=== PATIENT | female | born 1955 | race Two or more races ===

== ENCOUNTER 2018-10-08 08:27 | Outpatient (CLI) | payer OTHER | END 2018-10-08 10:31 | disposition home or self-care (01) | LOC: LAB 08:27 | DX: D50.0 Iron deficiency anemia secondary to blood loss (chronic) (principal); E11.69 Type 2 diabetes mellitus with other specified complication; E78.00 Pure hypercholesterolemia, unspecified; E03.8 Other specified hypothyroidism; N39.0 Urinary tract infection, site not specified; R10.9 Unspecified abdominal pain; Z12.11 Encounter for screening for malignant neoplasm of colon; K62.5 Hemorrhage of anus and rectum; E55.9 Vitamin D deficiency, unspecified; E53.8 Deficiency of other specified B group vitamins ==

== ENCOUNTER 2018-10-08 11:04 | Outpatient (CLI) | payer OTHER | END 2018-10-08 11:22 | disposition home or self-care (01) | LOC: MAMO-SONO 11:04 | DX: Z12.31 Encounter for screening mammogram for malignant neoplasm of breast (principal); Z87.898 Personal history of other specified conditions; N60.01 Solitary cyst of right breast; N60.02 Solitary cyst of left breast; J44.1 Chronic obstructive pulmonary disease with (acute) exacerbation ==

== ENCOUNTER 2018-10-08 13:31 | Outpatient (CLI) | payer OTHER | END 2018-10-08 14:00 | disposition home or self-care (01) | LOC: NUCLEAR 13:31 | DX: M81.0 Age-related osteoporosis without current pathological fracture (principal) ==

== ENCOUNTER 2018-10-09 14:35 | Outpatient (CLI) | payer OTHER | END 2018-10-09 15:36 | disposition home or self-care (01) | LOC: LAB 14:35 | DX: D50.0 Iron deficiency anemia secondary to blood loss (chronic) (principal); E11.69 Type 2 diabetes mellitus with other specified complication; E78.00 Pure hypercholesterolemia, unspecified; E03.8 Other specified hypothyroidism; N39.0 Urinary tract infection, site not specified; Z12.11 Encounter for screening for malignant neoplasm of colon; K62.5 Hemorrhage of anus and rectum; R10.9 Unspecified abdominal pain; E55.9 Vitamin D deficiency, unspecified; E53.8 Deficiency of other specified B group vitamins ==

== ENCOUNTER 2018-10-14 08:32 | Outpatient (CLI) | payer OTHER | END 2018-10-14 12:26 | disposition home or self-care (01) | LOC: LAB 08:32 | DX: R41.89 Other symptoms and signs involving cognitive functions and awareness (principal); R41.3 Other amnesia; E03.8 Other specified hypothyroidism; F03.90 Unspecified dementia, unspecified severity, without behavioral disturbance, psychotic disturbance, mood disturbance, and anxiety ==

== ENCOUNTER 2018-10-21 08:05 | Outpatient (CLI) | payer OTHER | END 2018-10-21 14:28 | disposition home or self-care (01) | LOC: MRI 08:05 | DX: R41.3 Other amnesia (principal) | CPT/HCPCS: 70553; A9575 ==

== ENCOUNTER → 2018-12-10 | Outpatient (CLI) | payer OTHER | END | disposition home or self-care (01) | LOC: NUCLEAR 07:00 | DX: I20.9 Angina pectoris, unspecified (principal) | CPT/HCPCS: 78452; 93017; A9500; J0153 ==

== ENCOUNTER 2019-04-03 08:44 | Outpatient (CLI) | payer OTHER | END 2019-04-03 08:51 | disposition home or self-care (01) | LOC: LAB 08:44 | DX: I11.9 Hypertensive heart disease without heart failure (principal); E78.5 Hyperlipidemia, unspecified; E03.9 Hypothyroidism, unspecified ==

== ENCOUNTER 2019-08-02 09:23 | Outpatient (CLI) | payer OTHER | END 2019-08-02 09:34 | disposition home or self-care (01) | LOC: LAB 09:23 | DX: D64.89 Other specified anemias (principal); I10 Essential (primary) hypertension; E11.9 Type 2 diabetes mellitus without complications; E78.00 Pure hypercholesterolemia, unspecified; N39.0 Urinary tract infection, site not specified; E03.8 Other specified hypothyroidism; E55.9 Vitamin D deficiency, unspecified; R19.5 Other fecal abnormalities ==

== ENCOUNTER 2019-08-26 08:43 | Outpatient (CLI) | payer OTHER | END 2019-08-26 09:01 | disposition home or self-care (01) | LOC: LAB 08:43 | DX: R41.89 Other symptoms and signs involving cognitive functions and awareness (principal); R41.3 Other amnesia; E03.8 Other specified hypothyroidism ==

== ENCOUNTER 2019-10-07 10:39 | Emergency (ER) | payer OTHER ==
[~2019-10-07] VITALS: Ht 160 cm; Wt 54.4 kg
== END 2019-10-07 11:23 | disposition home or self-care (01) ==
LOC: ER 10:39
DX: R07.89 Other chest pain (principal)

== ENCOUNTER 2019-11-24 08:20 | Outpatient (CLI) | payer OTHER | END 2019-11-24 08:27 | disposition home or self-care (01) | LOC: MRI 08:20 | DX: F09 Unspecified mental disorder due to known physiological condition (principal); F03.90 Unspecified dementia, unspecified severity, without behavioral disturbance, psychotic disturbance, mood disturbance, and anxiety | CPT/HCPCS: 70551 ==

== ENCOUNTER → 2019-11-24 | Outpatient (CLI) | payer OTHER | END | disposition home or self-care (01) | LOC: LAB 08:43 | DX: D64.89 Other specified anemias (principal); I10 Essential (primary) hypertension; E11.9 Type 2 diabetes mellitus without complications; E78.00 Pure hypercholesterolemia, unspecified; N39.0 Urinary tract infection, site not specified; E03.8 Other specified hypothyroidism ==

== ENCOUNTER → 2019-12-26 | Outpatient (CLI) | payer OTHER | END | disposition home or self-care (01) | LOC: MRI 14:28 | PROVIDERS: ATTEND Anesthesiology | DX: M54.5 Low back pain (principal); M54.2 Cervicalgia | CPT/HCPCS: 72141; 72148 ==

== ENCOUNTER → 2020-02-17 08:27 | Outpatient (CLI) | payer OTHER | END | disposition home or self-care (01) | LOC: LAB 08:27 | PROVIDERS: ATTEND Internal Medicine Cardiovascular Disease | DX: E03.8 Other specified hypothyroidism (principal); I11.9 Hypertensive heart disease without heart failure ==

== ENCOUNTER 2020-09-09 11:40 | Outpatient (CLI) | payer OTHER | END 2020-09-09 12:00 | disposition home or self-care (01) | LOC: LAB 11:40 | PROVIDERS: ATTEND Internal Medicine | DX: G30.0 Alzheimer's disease with early onset (principal); I70.0 Atherosclerosis of aorta; E03.8 Other specified hypothyroidism; E78.00 Pure hypercholesterolemia, unspecified; F39 Unspecified mood [affective] disorder; Z68.23 Body mass index [BMI] 23.0-23.9, adult ==

== ENCOUNTER 2020-11-17 13:52 | Outpatient (CLI) | payer OTHER | END 2020-11-17 14:03 | disposition home or self-care (01) | LOC: MAMO-SONO 13:52 | PROVIDERS: ATTEND Internal Medicine | DX: Z12.31 Encounter for screening mammogram for malignant neoplasm of breast (principal); Z87.898 Personal history of other specified conditions; N63.0 Unspecified lump in unspecified breast ==

== ENCOUNTER 2022-12-12 15:04 | Inpatient (IN) | payer OTHER ==
[~2022-12-12] VITALS: Ht 167.6 cm; Wt 59.0 kg
[~2022-12-12 15:04] MED LIST: CARVEDILOL3.125 MG; DULOXETINE HCL30 MG PO; LEVO-T50 MCG PO; LIPITOR40 MG PO; PLAVIX75 MG PO; SEROQUEL50 MG PO; ZESTRIL40 M1 PO
[2022-12-12] MEDS ORDERED: ARICEPT5 MG PO (15:40)
[2022-12-19] MEDS ORDERED: AMOX-CLAV 875-1 EAC1 PO (13:00)
[2022-12-19] MEDS ORDERED: TOPROL XL25 M1 PO (13:01)
[2022-12-19] MEDS ORDERED: INTEGRA PLUS C1 EACH PO (13:01)
[2022-12-19] MEDS ORDERED: SYNTHROID100 MCG PO (13:02)
== END 2022-12-19 21:02 | disposition home or self-care (01) | DRG 683 ==
LOC: ER 15:04 → MEDJ 12-13 12:09
PROVIDERS: ADMIT Internal Medicine; ATTEND Internal Medicine
PROC: BW21ZZZ Computerized Tomography (CT Scan) of Abdomen and Pelvis (ICD-10-PCS; 2022-12-12)
PROC: 0W9G3ZZ Drainage of Peritoneal Cavity, Percutaneous Approach (ICD-10-PCS; principal; 2022-12-14)
PROC: BW30ZZZ Magnetic Resonance Imaging (MRI) of Abdomen (ICD-10-PCS; 2022-12-14)
PROC: BW4GZZZ Ultrasonography of Pelvic Region (ICD-10-PCS; 2022-12-14)
PROC: 02HV33Z Insertion of Infusion Device into Superior Vena Cava, Percutaneous Approach (ICD-10-PCS; 2022-12-14)
DX: N17.8 Other acute kidney failure (principal); C34.31 Malignant neoplasm of lower lobe, right bronchus or lung; E87.1 Hypo-osmolality and hyponatremia; E86.0 Dehydration; E03.8 Other specified hypothyroidism; D72.818 Other decreased white blood cell count; K12.1 Other forms of stomatitis; E87.6 Hypokalemia; R14.0 Abdominal distension (gaseous); D64.9 Anemia, unspecified; I10 Essential (primary) hypertension; Z72.0 Tobacco use; F41.0 Panic disorder [episodic paroxysmal anxiety]
CPT/HCPCS: 74181

== ENCOUNTER 2023-08-09 16:02 | Outpatient (CLI) | payer OTHER ==
[~2023-08-09 16:02] MED LIST changes: +AMOX-CLAV 875-1 EAC1 PO; +ARICEPT5 MG PO; +INTEGRA PLUS C1 EACH PO; +SYNTHROID100 MCG PO; +TOPROL XL25 M1 PO
== END 2023-08-09 16:17 | disposition home or self-care (01) ==
LOC: RAD 16:02
PROVIDERS: ATTEND Internal Medicine
DX: M25.551 Pain in right hip (principal); M25.552 Pain in left hip

== ENCOUNTER 2023-10-02 14:23 | Outpatient (CLI) | payer OTHER | END 2023-10-02 14:55 | disposition home or self-care (01) | LOC: MRI 14:23 | PROVIDERS: ATTEND Neuromusculoskeletal Medicine & OMM | DX: F09 Unspecified mental disorder due to known physiological condition (principal); F03.90 Unspecified dementia, unspecified severity, without behavioral disturbance, psychotic disturbance, mood disturbance, and anxiety; I72.9 Aneurysm of unspecified site; I65.1 Occlusion and stenosis of basilar artery; I65.09 Occlusion and stenosis of unspecified vertebral artery; I65.29 Occlusion and stenosis of unspecified carotid artery; Q28.2 Arteriovenous malformation of cerebral vessels | CPT/HCPCS: 70544; 70551 ==

== ENCOUNTER 2024-05-06 09:24 | Outpatient (CLI) | payer OTHER | END 2024-05-06 09:25 | disposition home or self-care (01) | LOC: NUCLEAR 09:24 | PROVIDERS: ATTEND Internal Medicine Pulmonary Disease | DX: R06.02 Shortness of breath (principal); R91.8 Other nonspecific abnormal finding of lung field ==

== ENCOUNTER 2024-05-23 08:03 | Outpatient (CLI) | payer OTHER | END 2024-05-23 08:04 | disposition home or self-care (01) | LOC: NUCLEAR 08:03 | PROVIDERS: ATTEND Neuromusculoskeletal Medicine & OMM | DX: G30.9 Alzheimer's disease, unspecified (principal); G31.09 Other frontotemporal neurocognitive disorder | CPT/HCPCS: 78803; A9557 ==

== ENCOUNTER 2024-10-07 11:57 | Outpatient (CLI) | payer OTHER | END 2024-10-07 12:04 | disposition home or self-care (01) | LOC: TOM 11:57 | PROVIDERS: ATTEND Internal Medicine | DX: I71.20 Thoracic aortic aneurysm, without rupture, unspecified (principal); E04.1 Nontoxic single thyroid nodule | CPT/HCPCS: 71275; 76536; Q9965 ==

== ENCOUNTER 2024-10-11 16:54 | Inpatient (IN) | payer OTHER ==
[~2024-10-11] VITALS: Ht 162.6 cm; Wt 65.8 kg
--- NOTE | 2024-10-11 17:09 | NUR ---
SE RECIBE PTE ALERTA Y ORIENTADA X3 EN AMBULANCIA [place] POR FAMILIAR. PTE REFIERE MAREOS DESDE LA MANANA DE HOY Y NO REFIERE NAUSEAS, NI VOMITOS. DEXT AL MOMENTO DE TRIAGE EN 73. SE MIDEN S/V Y SE UBICA.
--- NOTE | 2024-10-11 18:41 | NUR ---
SE EDUCA A PTE SOBRE TX MEDICO, SE TONI MUESTRAS DE LABORATORIO UTILIZANDO MEDIDAS ASEPTICAS. PTE CON H/L YA COLOCADO EN BRAZO RT. SE REALIZA EKG A PTE SWATI ORDEN MEDICA.
[2024-10-11 19:55] LABS: PH,URINE 5.5 (5.0-8.0); URINE APPEARANCE Clear; URINE BILIRRUBIN Negative (NEGATIVE); URINE BLOOD Negative; URINE COLOR Yellow; URINE GLUCOSE Negative (NEGATIVE); URINE KETONE Negative (NEGATIVE); URINE LEUKOCYTE Negative; URINE NITRATE Negative; URINE PROTEIN Negative (NEGATIVE); URINE UROBILINOGEN 0.2 E.U./dl
[2024-10-11 19:59] LABS: URINE RBC 2.9 uL (0.0-20.8)
[2024-10-11 20:08] LABS: MEAN CELL VOLUME 94.1 fL (80.00-100.00); MEAN CORPUSCULAR HGB CONC 34.3 g/dl (32.0-36.0); PLATELET COUNT 140 K/uL (150-450); RED BLOOD COUNT 2.39 M/uL (4.00-6.00); RED CELL DISTRIBUTION WIDTH 13.3 % (11.5-14.5)
[2024-10-11 20:10] LABS: HEMATOCRIT 22.5 % (36.0-45.00); HEMOGLOBIN 7.7 g/dL (12.0-15.00); MEAN CORPUSCULAR HEMOGLOBIN 32.2 pg (27.00-32.0)
[2024-10-11 20:26] LABS: ALBUMIN 3.5 gm/dL (3.4-5.0); BILIRUBIN TOTAL 0.35 mg/dL (0.3-1.2); CALCIUM 8.6 mg/dL (8.5-10.1); CREATININE SERUM 1.17 mg/dL (0.55-1.02); GFR 45.6; GLOBULINA 3.5 G/DL (2.4-3.5); POTASSIUM 3.45 mEq/L (3.5-5.1)
[2024-10-11 20:32] LABS: URINE EPITHELIAL CELLS 0.7 uL (0.0-38.8)
[2024-10-11 20:33] LABS: URINE BACTERIA 0 uL (0.0-1933)
[2024-10-11] MEDS ORDERED: PANTOPRAZOLE SODIUM 40 MG in 0.9 % SODIUM CHLORIDE 8 ML IV PUSH STA (20:36)
--- NOTE | 2024-10-11 20:55 | NUR ---
SE REQUISAN 2 UNIDADES DE PRBC/FRACC Y SE [place] CONSENTIMIENTO DE TRANSFUCION. SE ADMINITRA MEDICAMENTOS SWATI ORDEN MEDICA. SE ENTREGA ENVASE DE OCCULTBLOOD
[2024-10-11] MEDS ORDERED: PANTOPRAZOLE SODIUM 40 MG in 0.9 % SODIUM CHLORIDE 8 ML IV PUSH SCH (21:10)
[2024-10-11] MEDS ORDERED: POTASSIUM CHLORIDE IN WATER 100 ML IV ONE (21:15)
[2024-10-11] MEDS ORDERED: 0.9 % SODIUM CHLORIDE 1,000 ML IV SCH (21:15)
[2024-10-11] MEDS ORDERED: DONEPEZIL HCL 5 MG TABLET PO SCH (21:27)
[2024-10-11] MEDS ORDERED: ATORVASTATIN CALCIUM 10 MG TABLET PO SCH (21:27)
[2024-10-11] MEDS ORDERED: LOSARTAN POTASSIUM 100 MG TABLET PO SCH (21:27)
[2024-10-12 00:38] VITALS: BP 92/57; O2SAT 99
[2024-10-12 00:39] VITALS: BP 97/62
[2024-10-12 00:56] LABS: INR 1.24; PROTHROMBIN TIME 13.3 SECONDS (9.0-11.5)
[2024-10-12 00:59] LABS: CHOL HDL RATIO 2.2 (0-5.0)
[2024-10-12 03:13] LABS: FERRITIN 49.8 NG/ML (8-252)
[2024-10-12] MEDS ORDERED: LEVOTHYROXINE SODIUM 112 MCG TABLET PO SCH (06:00)
[2024-10-12 07:28] LABS: ALBUMIN 3.3 gm/dL (3.4-5.0); BILIRUBIN TOTAL 0.41 mg/dL (0.3-1.2); CALCIUM 8.1 mg/dL (8.5-10.1); CREATININE SERUM 1.01 mg/dL (0.55-1.02); GFR 54.03; GLOBULINA 3.1 G/DL (2.4-3.5); POTASSIUM 3.56 mEq/L (3.5-5.1); TOTAL PROTEIN 6.4 gm/dL (6.4-8.2)
[2024-10-12 08:42] VITALS: BP 109/60; O2SAT 98
[2024-10-12 10:17] LABS: ob NEGATIVE (NEGATIVE)
[2024-10-12 14:21] LABS: CALCIUM 8.6 mg/dL (8.5-10.1); CHOL HDL RATIO 2.2 (0-5.0); CREATININE SERUM 1.07 mg/dL (0.55-1.02); GFR 50.55; POTASSIUM 3.48 mEq/L (3.5-5.1)
[2024-10-12 16:00] VITALS: BP 123/68; O2SAT 98
[2024-10-12] MEDS ORDERED: RINGERS SOLUTION,LACTATED 1,000 ML IV SCH (16:45)
[2024-10-12] MEDS ORDERED: AMINO ACIDS 4.25 %/DEXTROSE 5% 1,000 ML PERIFERAL SCH (17:00)
[2024-10-13 01:45] VITALS: BP 109/58; O2SAT 99
[2024-10-13 07:04] LABS: HEMATOCRIT 32.8 % (36.0-45.00); HEMOGLOBIN 11.6 g/dL (12.0-15.00); MEAN CELL VOLUME 88.8 fL (80.00-100.00); MEAN CORPUSCULAR HEMOGLOBIN 31.3 pg (27.00-32.0); MEAN CORPUSCULAR HGB CONC 35.3 g/dl (32.0-36.0); PLATELET COUNT 157 K/uL (150-450)
[2024-10-13 07:49] LABS: ALBUMIN 3.6 gm/dL (3.4-5.0); BILIRUBIN TOTAL 0.72 mg/dL (0.3-1.2); CREATININE SERUM 1.04 mg/dL (0.55-1.02); GFR 52.24; GLOBULINA 3.3 G/DL (2.4-3.5); MAGNESIUM 2.1 mg/dL (1.8-2.4); PHOSPHOROUS 3.6 mg/dL (2.5-4.9); POTASSIUM 4.13 mEq/L (3.5-5.1); TOTAL PROTEIN 6.9 gm/dL (6.4-8.2)
[2024-10-13 08:47] VITALS: BP 121/62
[2024-10-13] MEDS ORDERED: PANTOPRAZOLE SODIUM 40 MG TABLET.DR PO SCH (09:00)
[2024-10-13] MEDS ORDERED: ENOXAPARIN SODIUM 40 MG/0.4 ML SYRINGE SUBCUTANEO SCH (09:00)
[2024-10-13 11:04] LABS: FOLIC ACID > 20.00 ng/ml (4.78-20)
[2024-10-13 16:29] VITALS: BP 121/68; O2SAT 98
[2024-10-14 01:14] VITALS: BP 140/75; O2SAT 100
[2024-10-14 08:29] VITALS: BP 152/63
[2024-10-14 16:19] VITALS: BP 135/60; O2SAT 99
[2024-10-15 01:18] VITALS: BP 125/71; O2SAT 97
[2024-10-15 08:37] VITALS: BP 132/71; O2SAT 97
[2024-10-15 12:30] LABS: HEMATOCRIT 33.5 % (36.0-45.00); HEMOGLOBIN 11.3 g/dL (12.0-15.00); MEAN CELL VOLUME 91.2 fL (80.00-100.00); MEAN CORPUSCULAR HEMOGLOBIN 30.7 pg (27.00-32.0); MEAN CORPUSCULAR HGB CONC 33.7 g/dl (32.0-36.0); PLATELET COUNT 170 K/uL (150-450); RED BLOOD COUNT 3.68 M/uL (4.00-6.00); RED CELL DISTRIBUTION WIDTH 14.5 % (11.5-14.5)
[2024-10-15] MEDS ORDERED: ARICEPT5 MG PO (12:59)
[2024-10-15] MEDS ORDERED: LEVOTHYROXINE112 MCG PO (12:59)
[2024-10-15] MEDS ORDERED: LOSARTAN POTAS100 MG PO (12:59)
[2024-10-15] MEDS ORDERED: ATORVASTATIN CA10 MG PO (13:00)
[2024-10-15 13:02] LABS: ALBUMIN 3.3 gm/dL (3.4-5.0); BILIRUBIN TOTAL 0.5 mg/dL (0.3-1.2); CALCIUM 9.1 mg/dL (8.5-10.1); CREATININE SERUM 1.02 mg/dL (0.55-1.02); GFR 53.42; GLOBULINA 3.5 G/DL (2.4-3.5); MAGNESIUM 1.7 mg/dL (1.8-2.4); PHOSPHOROUS 3.2 mg/dL (2.5-4.9); POTASSIUM 3.51 mEq/L (3.5-5.1); TOTAL PROTEIN 6.8 gm/dL (6.4-8.2)
== END 2024-10-15 14:51 | disposition home or self-care (01) | DRG 181 ==
LOC: ER 16:54 → MEDI 22:48
PROVIDERS: Emergency Medicine; General Practice; ADMIT Internal Medicine; ATTEND Internal Medicine
PROC: BB24Y0Z Computerized Tomography (CT Scan) of Bilateral Lungs using Other Contrast, Unenhanced and Enhanced (ICD-10-PCS; 2024-10-11)
PROC: 30233N1 Transfusion of Nonautologous Red Blood Cells into Peripheral Vein, Percutaneous Approach (ICD-10-PCS; principal; 2024-10-12)
DX: C34.31 Malignant neoplasm of lower lobe, right bronchus or lung (principal); C34.91 Malignant neoplasm of unspecified part of right bronchus or lung; D63.0 Anemia in neoplastic disease; J84.10 Pulmonary fibrosis, unspecified; R91.8 Other nonspecific abnormal finding of lung field; E03.9 Hypothyroidism, unspecified; Z92.21 Personal history of antineoplastic chemotherapy; I10 Essential (primary) hypertension; Z20.822 Contact with and (suspected) exposure to COVID-19

== ENCOUNTER → 2024-11-11 06:55 | Outpatient (CLI) | payer OTHER ==
[~2024-11-11 06:55] MED LIST changes: +ATORVASTATIN CA10 MG PO; +LEVOTHYROXINE112 MCG PO; +LOSARTAN POTAS100 MG PO
[2024-11-11 07:55] LABS: HEMATOCRIT 34.3 % (36.0-45.00); HEMOGLOBIN 11.7 g/dL (12.0-15.00); MEAN CELL VOLUME 89.3 fL (80.00-100.00); MEAN CORPUSCULAR HEMOGLOBIN 30.6 pg (27.00-32.0); MEAN CORPUSCULAR HGB CONC 34.2 g/dl (32.0-36.0); PLATELET COUNT 185 K/uL (150-450); RED BLOOD COUNT 3.84 M/uL (4.00-6.00); RED CELL DISTRIBUTION WIDTH 15.1 % (11.5-14.5)
[2024-11-11 08:46] LABS: URINE APPEARANCE Cloudy; URINE BILIRRUBIN Negative (NEGATIVE); URINE BLOOD Negative; URINE COLOR Dark Yellow; URINE GLUCOSE Negative (NEGATIVE); URINE KETONE Trace (NEGATIVE); URINE LEUKOCYTE Trace; URINE NITRATE Negative
[2024-11-11 08:50] LABS: URINE BACTERIA 95.4 uL (0.0-1933); URINE CAST 2.94 uL (0.0-1.40); URINE EPITHELIAL CELLS 6.8 uL (0.0-38.8); URINE WBC 5.2 uL (0.0-23.2)
[2024-11-11 09:01] LABS: URINE PROTEIN 100 (NEGATIVE)
[2024-11-11 09:04] LABS: BILIRUBIN TOTAL 0.54 mg/dL (0.3-1.2); CALCIUM 9.1 mg/dL (8.5-10.1); CHOL HDL RATIO 2.1 (0-5.0); CREATININE SERUM 1.17 mg/dL (0.55-1.02); GFR 45.6; GLOBULINA 3.3 G/DL (2.4-3.5); POTASSIUM 3.52 mEq/L (3.5-5.1); TOTAL PROTEIN 7.3 gm/dL (6.4-8.2)
[2024-11-11 09:26] LABS: TSH 41.8 uIU/mL (0.358-3.74)
== END | disposition home or self-care (01) ==
LOC: LAB 06:55
PROVIDERS: ATTEND Internal Medicine
DX: D64.9 Anemia, unspecified (principal); E11.9 Type 2 diabetes mellitus without complications; E78.2 Mixed hyperlipidemia; E11.65 Type 2 diabetes mellitus with hyperglycemia; E03.8 Other specified hypothyroidism

== ENCOUNTER 2024-11-17 07:26 | Outpatient (CLI) | payer OTHER | END 2024-11-17 07:27 | disposition home or self-care (01) | LOC: NUCLEAR 07:26 | PROVIDERS: ATTEND Neuromusculoskeletal Medicine & OMM | DX: G30.9 Alzheimer's disease, unspecified (principal); G31.09 Other frontotemporal neurocognitive disorder | CPT/HCPCS: 78814; A9552 ==

== ENCOUNTER 2025-02-06 10:56 | Outpatient (CLI) | payer OTHER ==
[2025-02-06 12:51] LABS: BASO % 0.6 % (0.1-1.2); EOS # 0.09 (0.04-0.54); EOS % 5.3 % (0.7-7.0); LYMPH # 0.69 (1.18-3.74); LYMPH % 40.8 % (19.3-53.1); MEAN PLATELET VOLUME 11.40 fl (9.4-12.4); MONO # 0.22 (0.24-0.82); NEUT # 0.68 (1.56-6.13); NEUT % 40.3 % (34.0-71.1); RED CELL DISTRIBUTION WIDTH 14.2 % (11.6-14.4)
[2025-02-06 13:17] LABS: MONO % 13.0 % (4.7-12.5)
[2025-02-06 15:21] LABS: ALT/SGPT 25 U/L (12-78); AST/SGOT 36 U/L (15-37); BILIRUBIN TOTAL 0.57 mg/dL (0.3-1.2); BUN CREA RATIO 11 (7.0-25.0); CREATININE SERUM 1.00 mg/dL (0.55-1.02); GFR 54.66; GLOBULINA 3.5 G/DL (2.4-3.5); GLUCOSE FASTING 78 mg/dL (65-100); OSMOLALITY SERUM 274 MOSM/KG (275-295); PHOSPHOKINASE CREATININE 147 U/L (26-192); T4 FREE 1.01 NG/ML (0.76-1.46)
[2025-02-06 15:23] LABS: TSH 31.800 uIU/mL (0.358-3.74)
== END 2025-02-06 14:30 | disposition home or self-care (01) ==
LOC: LAB 10:56
PROVIDERS: ATTEND Neuromusculoskeletal Medicine & OMM
DX: R41.89 Other symptoms and signs involving cognitive functions and awareness (principal); R41.3 Other amnesia; G30.1 Alzheimer's disease with late onset; E03.9 Hypothyroidism, unspecified

== ENCOUNTER 2025-02-10 12:08 | Outpatient (CLI) | payer OTHER ==
[2025-02-10 12:47] LABS: BASO % 0.3 % (0.1-1.2); EOS # 0.11 (0.04-0.54); EOS % 3.2 % (0.7-7.0); LYMPH # 0.74 (1.18-3.74); LYMPH % 21.8 % (19.3-53.1); MEAN PLATELET VOLUME 11.20 fl (9.4-12.4); MONO # 0.60 (0.24-0.82); NEUT # 1.91 (1.56-6.13); NEUT % 56.4 % (34.0-71.1); RED CELL DISTRIBUTION WIDTH 14.9 % (11.6-14.4)
[2025-02-10 12:50] LABS: MONO % 17.7 % (4.7-12.5)
== END 2025-02-10 12:10 | disposition home or self-care (01) ==
LOC: LAB 12:08
PROVIDERS: ATTEND Neuromusculoskeletal Medicine & OMM
DX: D72.819 Decreased white blood cell count, unspecified (principal); D64.9 Anemia, unspecified

== ENCOUNTER → 2025-02-24 12:19 | Outpatient (CLI) | payer OTHER ==
[2025-02-24 12:37] LABS: BASO % 1.1 % (0.1-1.2); EOS # 0.07 (0.04-0.54); EOS % 1.3 % (0.7-7.0); LYMPH # 0.72 (1.18-3.74); LYMPH % 13.2 % (19.3-53.1); MEAN PLATELET VOLUME 10.70 fl (9.4-12.4); MONO # 0.62 (0.24-0.82); MONO % 11.4 % (4.7-12.5); NEUT # 3.97 (1.56-6.13); NEUT % 72.6 % (34.0-71.1); RED CELL DISTRIBUTION WIDTH 16.6 % (11.6-14.4)
== END | disposition home or self-care (01) ==
LOC: LAB 12:19
PROVIDERS: ATTEND Internal Medicine Hematology & Oncology
DX: D50.0 Iron deficiency anemia secondary to blood loss (chronic) (principal); D63.8 Anemia in other chronic diseases classified elsewhere; D63.0 Anemia in neoplastic disease; D50.8 Other iron deficiency anemias

== ENCOUNTER 2025-03-06 07:36 | Outpatient (CLI) | payer OTHER | END 2025-03-06 07:37 | disposition home or self-care (01) | LOC: NUCLEAR 07:36 | PROVIDERS: ATTEND Neuromusculoskeletal Medicine & OMM | DX: G30.9 Alzheimer's disease, unspecified (principal); G31.09 Other frontotemporal neurocognitive disorder | CPT/HCPCS: 78814; A9552 ==